=== PATIENT | female | born 1965 | race Caucasian/White ===

== ENCOUNTER 2016-11-06 10:50 | Inpatient (IN) | payer BC ==
[~2016-11-06] VITALS: Ht 165.1 cm; Wt 57.6 kg
[~2016-11-06 10:50] MED LIST: ALPR0.25 PO; AMLO2.5T PO; BUPR100T6 PO; BUTA1CAP58 PO; CARB200T PO; DIAZ10TA PO; FESO8TAB PO; FLUO10CA7 PO; FLUO20CA19 PO; IBUP800T PO; LISI-467 PO; LURA80TA PO; METH20TA PO; OMEP40CA3 PO; OXCA300O PO; TIZA2TAB PO
[2016-11-06] MEDS ORDERED: SODIUM CHLORIDE FLUSH 10ML SYR IVF ONE (11:30)
[2016-11-06 12:16] LABS: BLOOD UREA NITROGEN 7 mg/dL (7-18)
[2016-11-06] MEDS ORDERED: SODIUM CHLORIDE 0.9% 1,000 ML IV ONE (12:32)
[2016-11-06 14:25] VITALS: BP 146/94
[2016-11-06] MEDS ORDERED: ONDANSETRON ODT 4 MG PO PRN (15:00)
[2016-11-06] MEDS ORDERED: ENALAPRILAT 1.25 MG/ML, 2ML IV PRN (15:00)
[2016-11-06] MEDS ORDERED: DOCUSATE 100 MG CAPSULE PO PRN (15:00)
[2016-11-06] MEDS ORDERED: ACETAMINOPHEN 325 MG TABLET PO PRN (15:00)
[2016-11-06] MEDS ORDERED: GUAIFENESIN/DM 200-20MG, 10ML UDC PO PRN (15:00)
[2016-11-06] MEDS ORDERED: SODIUM CHLORIDE 3% 500 ML IV SCH (16:00)
[2016-11-06] MEDS: ENOXAPARIN 40 MG/0.4 ML SQ SCH (17:23)
[2016-11-06 19:46] VITALS: BP 118/81
[2016-11-06] MEDS: CARBAMAZEPINE 200 MG TABLET PO SCH (20:47)
[2016-11-06] MEDS: LURASIDONE 20 MG TABLET PO SCH (20:48)
[2016-11-06] MEDS: OMEPRAZOLE 20 MG CAPSULE.DR PO SCH (20:48)
[2016-11-07] MEDS: HYDROcodone/APAP 5/325 TABLET PO PRN ×4 (02:23→21:31)
[2016-11-07 02:35] VITALS: BP 139/90
[2016-11-07 06:17] LABS: BLOOD UREA NITROGEN 6 mg/dL (7-18)
[2016-11-07 07:00] VITALS: BP 124/81
[2016-11-07] MEDS: CARBAMAZEPINE 200 MG TABLET PO SCH ×2 (08:32→20:36)
[2016-11-07] MEDS: BUPROPION 100 MG TABLET PO SCH (08:32)
[2016-11-07] MEDS: FLUOXETINE 10 MG CAP PO SCH (08:32)
[2016-11-07] MEDS: AMLODIPINE 5 MG TABLET PO SCH (08:32)
[2016-11-07] MEDS: SODIUM CHLORIDE 1 GM TABLET PO SCH ×2 (08:32→20:36)
[2016-11-07] MEDS: METHYLPHENIDATE 10 MG TABLET PO SCH (12:11)
[2016-11-07 13:24] VITALS: BP 129/77
[2016-11-07] MEDS: ENOXAPARIN 40 MG/0.4 ML SQ SCH (15:55)
[2016-11-07 19:43] VITALS: BP 109/69
[2016-11-07] MEDS: OMEPRAZOLE 20 MG CAPSULE.DR PO SCH (20:36)
[2016-11-07] MEDS: LURASIDONE 20 MG TABLET PO SCH (20:36)
[2016-11-08 02:37] VITALS: BP 116/78
[2016-11-08] MEDS: HYDROcodone/APAP 5/325 TABLET PO PRN ×4 (02:43→21:51)
[2016-11-08 05:03] LABS: BLOOD UREA NITROGEN 7 mg/dL (7-18)
[2016-11-08 06:42] VITALS: BP 132/81
[2016-11-08] MEDS: AMLODIPINE 5 MG TABLET PO SCH (08:30)
[2016-11-08] MEDS: BUPROPION 100 MG TABLET PO SCH (08:30)
[2016-11-08] MEDS: FLUOXETINE 10 MG CAP PO SCH (08:30)
[2016-11-08] MEDS: SODIUM CHLORIDE 1 GM TABLET PO SCH ×2 (08:30→20:21)
[2016-11-08] MEDS: CARBAMAZEPINE 200 MG TABLET PO SCH ×2 (08:30→20:21)
[2016-11-08] MEDS: METHYLPHENIDATE 10 MG TABLET PO SCH (15:22)
[2016-11-08] MEDS: ENOXAPARIN 40 MG/0.4 ML SQ SCH (15:28)
[2016-11-08 15:58] VITALS: BP 131/83
[2016-11-08 19:48] VITALS: BP 124/78
[2016-11-08] MEDS: LURASIDONE 20 MG TABLET PO SCH (20:21)
[2016-11-08] MEDS: OMEPRAZOLE 20 MG CAPSULE.DR PO SCH (20:22)
[2016-11-09 02:45] VITALS: BP 134/70
[2016-11-09] MEDS: HYDROcodone/APAP 5/325 TABLET PO PRN ×2 (03:23→08:54)
[2016-11-09 05:04] LABS: BLOOD UREA NITROGEN 7 mg/dL (7-18)
[2016-11-09 07:32] VITALS: BP 133/89
[2016-11-09] MEDS: FLUOXETINE 10 MG CAP PO SCH (08:49)
[2016-11-09] MEDS: AMLODIPINE 5 MG TABLET PO SCH (08:49)
[2016-11-09] MEDS: SODIUM CHLORIDE 1 GM TABLET PO SCH (08:49)
[2016-11-09] MEDS: CARBAMAZEPINE 200 MG TABLET PO SCH (08:49)
[2016-11-09] MEDS: BUPROPION 100 MG TABLET PO SCH (08:50)
[2016-11-09] MEDS ORDERED: SODI1TAB PO (09:54)
[2016-11-09] MEDS ORDERED: MIRT15TA PO (09:54)
[2016-11-09 10:52] LABS: POTASSIUM,URINE RANDOM 16 mmol/L
[2016-11-09] MEDS: METHYLPHENIDATE 10 MG TABLET PO SCH (12:36)
== END 2016-11-09 13:15 | disposition home or self-care (01) | DRG 641 ==
LOC: ED 12:34 → EDIP 12:35 → ED 12:49 → 3NW 14:09
PROVIDERS: ADMIT Family Medicine; ATTEND Family Medicine
DX: E87.1 Hypo-osmolality and hyponatremia (principal); F31.9 Bipolar disorder, unspecified; I10 Essential (primary) hypertension; K21.9 Gastro-esophageal reflux disease without esophagitis; Z85.3 Personal history of malignant neoplasm of breast; Z90.81 Acquired absence of spleen; D72.819 Decreased white blood cell count, unspecified; Z90.710 Acquired absence of both cervix and uterus; H53.2 Diplopia; T78.8XXA Other adverse effects, not elsewhere classified, initial encounter
CPT/HCPCS: 36415; 80048; 82040; 82436; 82570; 83735; 83930; 83935; 84133; 84295; 84300; 84439; 84443; 84588; 85025; 96360; J1650; J7030

== ENCOUNTER 2019-02-25 17:53 | Inpatient (IN) | payer MEDICARE ==
[~2019-02-25] VITALS: Ht 165.1 cm; Wt 67.9 kg
[2019-03-02 08:19] VITALS: BP 148/92
== END 2019-03-02 10:52 | disposition home or self-care (01) | DRG 871 ==
LOC: ED 20:56 → EDIP 21:31 → 3NE 22:18
PROVIDERS: ADMIT Emergency Medicine; ATTEND Emergency Medicine
DX: A41.9 Sepsis, unspecified organism (principal); N17.0 Acute kidney failure with tubular necrosis; E87.1 Hypo-osmolality and hyponatremia; A09 Infectious gastroenteritis and colitis, unspecified; K92.1 Melena; D64.9 Anemia, unspecified; E86.0 Dehydration; E87.6 Hypokalemia; F10.10 Alcohol abuse, uncomplicated; F20.9 Schizophrenia, unspecified; F31.9 Bipolar disorder, unspecified; G43.909 Migraine, unspecified, not intractable, without status migrainosus; R73.9 Hyperglycemia, unspecified; I10 Essential (primary) hypertension; Z82.49 Family history of ischemic heart disease and other diseases of the circulatory system; Z85.3 Personal history of malignant neoplasm of breast; Z90.49 Acquired absence of other specified parts of digestive tract; Z90.710 Acquired absence of both cervix and uterus; Z90.81 Acquired absence of spleen
CPT/HCPCS: 36415; 74177; 80048; 80053; 81003; 83036; 83605; 83690; 83735; 84100; 85025; 85610; 85730; 86850; 86900; 87040; 87046; 87324; 89055; 96374; G0378; J0696; J0744; J2405; J3480; Q9967; J0360; J2270; J3475; J7030

== ENCOUNTER 2019-08-25 01:11 | Observation (INO) | payer MEDICARE ==
[~2019-08-25] VITALS: Ht 165.1 cm; Wt 73.7 kg
[~2019-08-25 01:11] MED LIST changes: -AMLO2.5T PO; +AMLO2.5T5 PO; +BUPR300T94 PO; +CARI1.5C2 PO; +CEPH500T PO; +CIPR500T3 PO; +CIPR500T87 PO; +EREN70AU INJ; +FLUO10CA14 PO; -FLUO10CA7 PO; +FLUO20TA25 PO; +IBUP-1223 PO; -IBUP800T PO; +LISI2.5T PO; +LITH150C PO; +METH20TA8 PO; +METR-90 PO; +METR500T PO; +MIRT15TA PO; +QUET400T PO; +QUET400T4 PO; +SODI1TAB PO; -TIZA2TAB PO; +TIZA2TAB2 PO; +TIZA4CAP PO
[2019-08-25] MEDS ORDERED: SODIUM CHLORIDE 0.9% 1,000ML IVBOLUS ONE (01:30)
[2019-08-25] MEDS ORDERED: ONDANSETRON 2MG/ML, 2ML IVPush ONE (01:30)
[2019-08-25] MEDS ORDERED: FENTANYL PF 100 MCG/2ML ONE ×2 (01:42→02:40)
[2019-08-25] MEDS ORDERED: ONDANSETRON 2MG/ML, 2ML ONE (01:42)
[2019-08-25] MEDS: FENTANYL PF 100 MCG/2ML IVPush PRN ×2 (01:46→02:44)
--- NOTE | 2019-08-25 01:57 | NUR ---
Patient BIB [facility] c/o low quad abd pain with N/V/D. Symptoms started tonight. Hx of colitis. Patient is in obvious pain. Respirations even and unlabored.
[2019-08-25 02:31] LABS: BASOPHILS # (AUTO) 0.01 x10^3/uL (0-0.1); BASOPHILS % (AUTO) 0 % (0-1); EOSINOPHILS # (AUTO) 0.11 x10^3/uL (0-0.4); EOSINOPHILS % (AUTO) 1 % (1-7); LYMPHOCYTES # (AUTO) 1.46 x10^3/uL (1-3.4); LYMPHOCYTES % (AUTO) 9 % (22-44); MD NO; MEAN CORPUSCULAR HEMOGLOBIN 32.2 pg (27.0-34.8); MEAN CORPUSCULAR HGB CONC 33.1 g/dL (32.4-35.8); MEAN CORPUSCULAR VOLUME 97.2 fL (80-100); MEAN PLATELET VOLUME 7.8 fL (7.4-10.4); MONOCYTES # (AUTO) 1.43 x10^3/uL (0.2-0.8); MONOCYTES % (AUTO) 9 % (2-9); NEUTROPHILS # (AUTO) 13.66 x10^3/uL (1.8-6.8); NEUTROPHILS % (AUTO) 82 % (42-75); PLATELET COUNT 436 x10^3/uL (130-400); RED BLOOD COUNT 3.93 x10^6/uL (3.82-5.3); RED CELL DISTRIBUTION WIDTH 14.3 % (9.6-15.2)
[2019-08-25 02:44] LABS: ALANINE AMINOTRANSFERASE 24 U/L (12-78); ALBUMIN 3.3 g/dL (3.4-5.0); ANION GAP 11 mmol/L (5-15); CALCIUM 7.6 mg/dL (8.5-10.1); CHLORIDE 100 mmol/L (98-107); CREATININE 0.94 mg/dL (0.55-1.02)
[2019-08-25 02:46] LABS: ALKALINE PHOSPHATASE 161 U/L (45-117); BILIRUBIN,TOTAL 0.2 mg/dL (0.2-1.0); TOTAL PROTEIN 5.8 g/dL (6.4-8.2)
[2019-08-25] MEDS ORDERED: OMNIPAQUE 350 MG/ML, 100ML BOTTLE ONE (03:21)
[2019-08-25] MEDS ORDERED: METRONIDAZOLE PMX 500MG/100ML 100 ML ONE (04:15)
[2019-08-25] MEDS ORDERED: CEFTRIAXONE PMX 1GM/50ML 50 ML ONE (04:16)
[2019-08-25] MEDS ORDERED: HYDROmorphone 1 MG/ML, 1ML INJ ONE (04:23)
[2019-08-25] MEDS ORDERED: HYDROmorphone 1 MG/ML, 1ML INJ IV ONE (04:30)
[2019-08-25] MEDS ORDERED: METRONIDAZOLE PMX 500MG/100ML 100 ML IV ONE (04:30)
[2019-08-25] MEDS ORDERED: CEFTRIAXONE PMX 1GM/50ML 50 ML IV ONE (04:30)
[2019-08-25] MEDS: PLEASE ENTER HEIGHT AND WEIGHT MC SCH ×2 (04:30→04:33)
[2019-08-25] MEDS: NS + 20MEQ KCL 1,000 ML IV SCH ×2 (05:50→15:30)
[2019-08-25] MEDS ORDERED: PROMETHAZINE 25 MG/ML, 1ML IM PRN (06:00)
[2019-08-25] MEDS ORDERED: HYDROmorphone 2 MG/ML, 1ML IVPush PRN (06:00)
[2019-08-25] MEDS ORDERED: POTASSIUM CHLORIDE 20 MEQ TAB.ER.PRT PO ONE (06:00)
[2019-08-25] MEDS ORDERED: ONDANSETRON 2MG/ML, 2ML IVPush PRN (06:00)
[2019-08-25] MEDS ORDERED: ACETAMINOPHEN 325 MG TABLET PO PRN ×2 (06:00→09:00)
[2019-08-25] MEDS ORDERED: CEFTRIAXONE PMX 1GM/50ML 50 ML IV SCH (06:00)
[2019-08-25] MEDS: CALCIUM GLUCONATE 4.6 MEQ in SODIUM CHLORIDE 0.9% 50 ML IV ONE ×2 (06:45→07:39)
[2019-08-25 06:55] LABS: FREE T4 (FREE THYROXINE) 0.55 ng/dL (0.76-1.46)
[2019-08-25 08:32] VITALS: BP 119/77
[2019-08-25] MEDS ORDERED: IBUPROFEN 600 MG TABLET PO PRN (09:00)
[2019-08-25 09:09] LABS: CLOSTRIDIUM DIFFICILE ANTIGEN NEGATIVE; CLOSTRIDIUM DIFFICILE TOXIN NEGATIVE (Negative)
[2019-08-25] MEDS: METRONIDAZOLE PMX 500MG/100ML 100 ML IV SCH ×3 (10:54→22:54)
[2019-08-25 11:39] LABS: MICROSCOPIC NOT IND
[2019-08-25 11:55] LABS: CULTURE INDICATED? NO
[2019-08-25 12:11] LABS: ANION GAP 8 mmol/L (5-15); CALCIUM 8.3 mg/dL (8.5-10.1); CHLORIDE 102 mmol/L (98-107)
[2019-08-25 12:12] LABS: CREATININE 0.83 mg/dL (0.55-1.02)
[2019-08-25 13:39] VITALS: BP 132/86
[2019-08-25] MEDS: CEFTRIAXONE PMX 1GM/50ML 50 ML IV SCH (16:18)
[2019-08-25 21:01] VITALS: BP 155/87
[2019-08-25] MEDS: LISINOPRIL 20 MG TABLET PO SCH (21:45)
[2019-08-25] MEDS: BUPROPION 100 MG TABLET PO SCH (21:45)
[2019-08-25] MEDS: CARBAMAZEPINE 200 MG TABLET PO SCH (21:45)
[2019-08-25] MEDS: FLUOXETINE HCL 20 MG CAPSULE PO SCH (21:46)
[2019-08-25] MEDS: QUETIAPINE 100MG TABLET PO SCH (21:46)
[2019-08-25] MEDS: METHYLPHENIDATE 10 MG TABLET PO SCH (21:46)
[2019-08-26 00:37] VITALS: BP 116/78
[2019-08-26] MEDS: NS + 20MEQ KCL 1,000 ML IV SCH (00:39)
[2019-08-26] MEDS: CEFTRIAXONE PMX 1GM/50ML 50 ML IV SCH (04:08)
[2019-08-26] MEDS: METRONIDAZOLE PMX 500MG/100ML 100 ML IV SCH (05:06)
[2019-08-26 05:58] LABS: CHLORIDE 103 mmol/L (98-107)
[2019-08-26 05:59] LABS: BASOPHILS # (AUTO) 0.07 x10^3/uL (0-0.1); BASOPHILS % (AUTO) 1 % (0-1); EOSINOPHILS # (AUTO) 0.35 x10^3/uL (0-0.4); EOSINOPHILS % (AUTO) 6 % (1-7); LYMPHOCYTES # (AUTO) 1.41 x10^3/uL (1-3.4); LYMPHOCYTES % (AUTO) 23 % (22-44); MD NO; MEAN CORPUSCULAR HEMOGLOBIN 32.4 pg (27.0-34.8); MEAN CORPUSCULAR HGB CONC 33.3 g/dL (32.4-35.8); MEAN CORPUSCULAR VOLUME 97.5 fL (80-100); MEAN PLATELET VOLUME 8.3 fL (7.4-10.4); MONOCYTES # (AUTO) 0.99 x10^3/uL (0.2-0.8); MONOCYTES % (AUTO) 16 % (2-9); NEUTROPHILS # (AUTO) 3.25 x10^3/uL (1.8-6.8); NEUTROPHILS % (AUTO) 54 % (42-75); PLATELET COUNT 438 x10^3/uL (130-400); RED BLOOD COUNT 3.39 x10^6/uL (3.82-5.3); RED CELL DISTRIBUTION WIDTH 14.6 % (9.6-15.2)
[2019-08-26] MEDS ORDERED: LEVOTHYROXINE 100 MCG TABLET PO SCH (06:00)
[2019-08-26 06:02] LABS: ANION GAP 8 mmol/L (5-15); CALCIUM 8.1 mg/dL (8.5-10.1); CREATININE 0.54 mg/dL (0.55-1.02)
[2019-08-26] MEDS ORDERED: OXYcodone 5 MG/5 ML ORAL.SOL UDC PO PRN (07:30)
[2019-08-26] MEDS ORDERED: ACETAMINOPHEN 325 MG TABLET PO PRN (07:30)
[2019-08-26] MEDS ORDERED: metroNIDAZOLE 500 MG TABLET PO SCH (07:30)
[2019-08-26] MEDS ORDERED: ENOXAPARIN 40 MG/0.4 ML SQ SCH (07:30)
[2019-08-26] MEDS ORDERED: SODIUM CHLORIDE 0.9% 1,000 ML IV SCH (07:30)
[2019-08-26 07:44] VITALS: BP 152/101
[2019-08-26] MEDS ORDERED: DIPHENHYDRAMINE 25 MG CAPSULE PO PRN (08:00)
[2019-08-26] MEDS: FLUOXETINE HCL 20 MG CAPSULE PO SCH (08:19)
[2019-08-26] MEDS: BUPROPION 100 MG TABLET PO SCH (08:19)
[2019-08-26] MEDS: LISINOPRIL 20 MG TABLET PO SCH (08:20)
[2019-08-26] MEDS: CARBAMAZEPINE 200 MG TABLET PO SCH (08:20)
[2019-08-26] MEDS: METHYLPHENIDATE 10 MG TABLET PO SCH (08:21)
[2019-08-26] MEDS: QUETIAPINE 100MG TABLET PO SCH (08:24)
[2019-08-26] MEDS ORDERED: HYDROmorphone 2 MG/ML, 1ML IVPush PRN (09:00)
[2019-08-26] MEDS ORDERED: LACTOBACILLUS CHEW TABLET PO SCH (09:00)
[2019-08-26] MEDS ORDERED: LURASIDONE 20 MG TABLET PO SCH (09:00)
[2019-08-26] MEDS ORDERED: CIPROFLOXACIN 500 MG TABLET PO SCH (09:00)
[2019-08-26] MEDS ORDERED: CIPR500T87 PO (11:13)
[2019-08-26] MEDS ORDERED: METR500T PO (11:13)
[2019-08-26] MEDS ORDERED: ACID1TAB7 PO (11:13)
[2019-08-26] MEDS ORDERED: LEVO100T PO (11:17)
== END 2019-08-26 12:25 | disposition home or self-care (01) ==
LOC: ED 05:10 → INTOOBSV 05:11 → 3N 05:11 → DCLOUNGE 08-26 12:18
PROVIDERS: ADMIT Family Medicine; ATTEND Internal Medicine
DX: A41.9 Sepsis, unspecified organism (principal); K52.9 Noninfective gastroenteritis and colitis, unspecified; E87.1 Hypo-osmolality and hyponatremia; E87.6 Hypokalemia; E87.2 Acidosis; E83.51 Hypocalcemia; D72.829 Elevated white blood cell count, unspecified; I10 Essential (primary) hypertension; G43.909 Migraine, unspecified, not intractable, without status migrainosus; F31.9 Bipolar disorder, unspecified; F20.9 Schizophrenia, unspecified; E86.0 Dehydration; I95.9 Hypotension, unspecified; G47.00 Insomnia, unspecified; E03.9 Hypothyroidism, unspecified; Z85.3 Personal history of malignant neoplasm of breast; Z90.710 Acquired absence of both cervix and uterus; Z79.899 Other long term (current) drug therapy; Z90.49 Acquired absence of other specified parts of digestive tract
CPT/HCPCS: 36415; 71045; 74177; 80048; 80053; 81003; 82533; 83605; 83690; 83735; 84439; 84443; 85025; 87040; 87046; 87324; 87427; 93005; 96361; 96365; 96366; 96367; 96368; 96372; 96375; 96376; 99291; G0378; J0610; J0696; J1170; J1650; J2405; J3010; J3480; J7030; Q0163; Q9967; 96374

== ENCOUNTER 2019-10-09 10:33 | Observation (INO) | payer MEDICARE ==
[~2019-10-09] VITALS: Ht 165.1 cm; Wt 72.8 kg
[~2019-10-09 10:33] MED LIST changes: +ACID1TAB7 PO; +LEVO100T PO; -TIZA2TAB2 PO; +TIZA2TAB4 PO
--- NOTE | 2019-10-09 10:58 | NUR ---
PT BIB [facility], PT WITH C/O SEVERE WEAKNESS. FOUND ON THE FLOOR AT WORK, -LOC. PT REPORTS FEELING THOUGH SHE HAD TO LIE DOWN. PT WITH 10 BM TODAY, RECENT DX OF COLITIS. PT ASSISTED WITH BEDPAN X3 DURING TRIAGE. PT WITH SOFT ALTHOUGH FORMED BM.
[2019-10-09] MEDS ORDERED: KETOROLAC 30 MG/1 ML ONE (11:14)
[2019-10-09] MEDS ORDERED: KETOROLAC 30 MG/1 ML IVPush ONE (11:30)
[2019-10-09] MEDS ORDERED: SODIUM CHLORIDE FLUSH 10ML SYR IVF ONE (11:30)
[2019-10-09] MEDS ORDERED: SODIUM CHLORIDE 0.9% 1,000ML IVBOLUS ONE ×2 (11:30→12:00)
--- NOTE | 2019-10-09 11:47 | NUR ---
PT NOW HYPOTENSIVE. PT WITH SBP 60S. ERMD MADE AWARE. BOLUS HUNG. ATTEMPT AT [facility] UNSUCCESSFULL WILL ATTEMPT US GUIDED FOR ADDITIONAL ACCESS
[2019-10-09 12:11] LABS: BASOPHILS % (AUTO) 0 % (0-1); EOSINOPHILS # (AUTO) 0.12 x10^3/uL (0-0.4); EOSINOPHILS % (AUTO) 2 % (1-7); LYMPHOCYTES # (AUTO) 0.76 x10^3/uL (1-3.4); LYMPHOCYTES % (AUTO) 12 % (22-44); MD NO; MEAN CORPUSCULAR HEMOGLOBIN 32.1 pg (27.0-34.8); MEAN CORPUSCULAR HGB CONC 32.7 g/dL (32.4-35.8); MEAN CORPUSCULAR VOLUME 98.2 fL (80-100); MONOCYTES # (AUTO) 0.08 x10^3/uL (0.2-0.8); MONOCYTES % (AUTO) 1 % (2-9); NEUTROPHILS # (AUTO) 5.64 x10^3/uL (1.8-6.8); NEUTROPHILS % (AUTO) 85 % (42-75); PLATELET COUNT 224 x10^3/uL (130-400); RED BLOOD COUNT 2.49 x10^6/uL (3.82-5.3); RED CELL DISTRIBUTION WIDTH 13.9 % (9.6-15.2)
[2019-10-09] MEDS ORDERED: LOPERAMIDE 2 MG CAPSULE ONE (12:28)
[2019-10-09] MEDS ORDERED: DIPHENOXYLATE/ATROPINE TABLET PO ONE (12:30)
--- NOTE | 2019-10-09 12:33 | NUR ---
BP IMPROVING DURING BOLUS, 91/37 AT THIS TIME. ERMD UPDATED. PT WITH LARGE LOOSE STOOL, CLEANED AND NEW LINENS AND CHUCKS APPLIED. ADDITIONAL ACCESS ACHEIVED VIA US.
[2019-10-09] MEDS ORDERED: CALCIUM GLUCONATE 4.6 MEQ/10 ML ONE (12:45)
[2019-10-09] MEDS ORDERED: CALCIUM GLUCONATE 0.46MEQ/1ML IVPush ONE (13:00)
[2019-10-09 13:19] LABS: CLOSTRIDIUM DIFFICILE ANTIGEN NEGATIVE; CLOSTRIDIUM DIFFICILE TOXIN NEGATIVE (Negative)
--- NOTE | 2019-10-09 13:42 | NUR ---
LAB CALLED, CHEM PANEL NEEDING REDRAW FOR THIRD TIME, RABIA UPDATED
[2019-10-09] MEDS ORDERED: PLEASE ENTER ALLERGIES MC SCH (14:00)
[2019-10-09] MEDS ORDERED: SODIUM CHLORIDE 0.9% 1,000 ML IV ONE (14:00)
[2019-10-09 14:03] LABS: ALANINE AMINOTRANSFERASE 26 U/L (12-78); ALBUMIN 3.5 g/dL (3.4-5.0); ANION GAP 11 mmol/L (5-15); CALCIUM 8.1 mg/dL (8.5-10.1); CHLORIDE 107 mmol/L (98-107); CREATININE 1.19 mg/dL (0.55-1.02)
[2019-10-09 14:06] LABS: ALKALINE PHOSPHATASE 239 U/L (45-117); BILIRUBIN,TOTAL 0.3 mg/dL (0.2-1.0); TOTAL PROTEIN 6.1 g/dL (6.4-8.2)
--- NOTE | 2019-10-09 15:05 | NUR ---
TASK RN: PATIENT AMBULATED UP TO RESTROOM FOR UA. NO DIZZINESS. HR REMAINED 80-90 UA SENT FOR ANALYSIS
[2019-10-09 15:15] LABS: MICROSCOPIC AUTO
--- NOTE | 2019-10-09 16:35 | NUR ---
PT RESTING ON GURNEY AT THIS TIME, NAD NOTED, BP REMAINS STABLE, AWAITING ADMITTING MD
[2019-10-09] MEDS ORDERED: KETOROLAC 30 MG/1 ML IV PRN (17:30)
[2019-10-09] MEDS ORDERED: ONDANSETRON 2MG/ML, 2ML IVPush PRN (17:30)
[2019-10-09] MEDS ORDERED: ONDANSETRON ODT 4 MG PO PRN (17:30)
[2019-10-09 17:36] VITALS: BP 99/58
[2019-10-09] MEDS: NS + 20MEQ KCL 1,000 ML IV SCH (18:23)
[2019-10-09 19:09] VITALS: BP 104/63
[2019-10-09 20:33] VITALS: BP 99/59
[2019-10-09] MEDS: LACTOBACILLUS CHEW TABLET PO SCH (20:37)
[2019-10-09] MEDS ORDERED: OMEPRAZOLE 20 MG CAPSULE.DR PO SCH (21:00)
[2019-10-09] MEDS: QUETIAPINE 200 MG TABLET PO SCH (21:00)
[2019-10-09] MEDS: CARBAMAZEPINE 200 MG TABLET PO SCH (21:45)
[2019-10-10] MEDS: NS + 20MEQ KCL 1,000 ML IV SCH ×2 (00:15→06:23)
[2019-10-10 01:13] VITALS: BP 98/64
[2019-10-10] MEDS ORDERED: LEVOTHYROXINE 50 MCG TABLET PO SCH (06:00)
[2019-10-10 07:02] LABS: ANION GAP 6 mmol/L (5-15); CALCIUM 7.8 mg/dL (8.5-10.1); CHLORIDE 113 mmol/L (98-107)
[2019-10-10 07:04] LABS: ALANINE AMINOTRANSFERASE 26 U/L (12-78); CREATININE 0.82 mg/dL (0.55-1.02)
[2019-10-10 07:15] LABS: ALKALINE PHOSPHATASE 176 U/L (45-117); BILIRUBIN,TOTAL 0.4 mg/dL (0.2-1.0); TOTAL PROTEIN 5.5 g/dL (6.4-8.2)
[2019-10-10 07:37] LABS: BASOPHILS # (AUTO) 0.09 x10^3/uL (0-0.1); BASOPHILS % (AUTO) 1 % (0-1); EOSINOPHILS # (AUTO) 0.41 x10^3/uL (0-0.4); EOSINOPHILS % (AUTO) 4 % (1-7); LYMPHOCYTES # (AUTO) 1.26 x10^3/uL (1-3.4); LYMPHOCYTES % (AUTO) 13 % (22-44); MD SCAN; MEAN CORPUSCULAR HEMOGLOBIN 32.2 pg (27.0-34.8); MEAN CORPUSCULAR HGB CONC 32.9 g/dL (32.4-35.8); MONOCYTES # (AUTO) 0.97 x10^3/uL (0.2-0.8); MONOCYTES % (AUTO) 10 % (2-9); NEUTROPHILS % (AUTO) 72 % (42-75); PLATELET COUNT 297 x10^3/uL (130-400); RED BLOOD COUNT 3.43 x10^6/uL (3.82-5.3); RED CELL DISTRIBUTION WIDTH 13.8 % (9.6-15.2)
[2019-10-10 08:03] VITALS: BP 138/87
[2019-10-10] MEDS: QUETIAPINE 200 MG TABLET PO SCH (08:42)
[2019-10-10] MEDS: CARBAMAZEPINE 200 MG TABLET PO SCH (08:42)
[2019-10-10] MEDS: LACTOBACILLUS CHEW TABLET PO SCH (08:42)
[2019-10-10] MEDS ORDERED: FLUOXETINE HCL 20 MG CAPSULE PO SCH (09:00)
[2019-10-10] MEDS ORDERED: BUPROPION SR 150 MG TABLET PO SCH (09:00)
[2019-10-10 13:48] VITALS: BP 126/82
== END 2019-10-10 14:49 | disposition home or self-care (01) ==
LOC: ED 11:07 → EDIP 15:24 → INTOOBSV 15:24 → 3N 17:29
PROVIDERS: ADMIT Internal Medicine; ATTEND Internal Medicine
DX: R65.10 Systemic inflammatory response syndrome (SIRS) of non-infectious origin without acute organ dysfunction (principal); R19.7 Diarrhea, unspecified; E87.1 Hypo-osmolality and hyponatremia; E86.0 Dehydration; D64.9 Anemia, unspecified; K21.9 Gastro-esophageal reflux disease without esophagitis; E03.9 Hypothyroidism, unspecified; F20.9 Schizophrenia, unspecified; F31.9 Bipolar disorder, unspecified; I95.9 Hypotension, unspecified; G43.909 Migraine, unspecified, not intractable, without status migrainosus; I10 Essential (primary) hypertension; Z85.3 Personal history of malignant neoplasm of breast; Z90.710 Acquired absence of both cervix and uterus
CPT/HCPCS: 36415; 74018; 80053; 81001; 83605; 83690; 83735; 84100; 84443; 85025; 87086; 87324; 89055; 93005; 96361; 96374; 96375; 96376; 99285; G0378; J0610; J1885; J3480; J7030; 96365

== ENCOUNTER 2020-07-27 13:35 | Outpatient (CLI) | payer MEDICARE ==
[~2020-07-27 13:35] MED LIST changes: -FLUO10CA14 PO; +FLUO10CA15 PO; +MIRT-37 PO; -MIRT15TA PO; +TIZA-106 PO; -TIZA2TAB4 PO
== END 2020-07-27 23:59 | disposition home or self-care (01) ==
LOC: WOUND 13:35
PROVIDERS: ATTEND Nurse Practitioner Family
DX: Z93.2 Ileostomy status (principal); I10 Essential (primary) hypertension; F32.9 Major depressive disorder, single episode, unspecified; F41.9 Anxiety disorder, unspecified; Z85.3 Personal history of malignant neoplasm of breast
CPT/HCPCS: G0463

== ENCOUNTER 2020-09-23 10:15 | Outpatient (CLI) | payer MEDICARE ==
[~2020-09-23 10:15] MED LIST changes: -CIPR500T3 PO; +CIPR500T4 PO
[2020-09-23] MEDS ORDERED: OMNIPAQUE 350 MG/ML, 100ML BOTTLE ONE (11:15)
== END 2020-09-23 23:59 | disposition home or self-care (01) ==
LOC: CFH 10:15
PROVIDERS: ATTEND Surgery
DX: J84.10 Pulmonary fibrosis, unspecified (principal); K55.8 Other vascular disorders of intestine; Z90.81 Acquired absence of spleen; Z90.49 Acquired absence of other specified parts of digestive tract
CPT/HCPCS: 74174; 82565; Q9967

== ENCOUNTER 2020-11-26 12:51 | Outpatient (CLI) | payer MEDICARE ==
[~2020-11-26 12:51] MED LIST changes: +BUPR100T11 PO; +QUET100T PO
== END 2020-11-26 23:59 | disposition home or self-care (01) ==
LOC: WOUND 12:51
PROVIDERS: ATTEND Internal Medicine
DX: Z93.2 Ileostomy status (principal); Z93.3 Colostomy status; I10 Essential (primary) hypertension; F32.9 Major depressive disorder, single episode, unspecified; F41.9 Anxiety disorder, unspecified; E03.9 Hypothyroidism, unspecified; K21.9 Gastro-esophageal reflux disease without esophagitis; Z79.899 Other long term (current) drug therapy; Z85.3 Personal history of malignant neoplasm of breast
CPT/HCPCS: G0463

== ENCOUNTER → 2020-12-31 | Outpatient (CLI) | payer MEDICARE ==
[~2020-12-31] MED LIST changes: +AMLO-211 PO; +BUPR200T3 PO; +PREG75CA PO; +VALA500T8 PO
[2020-12-31 11:30] LABS: BASOPHILS % (AUTO) 1 % (0-1); EOSINOPHILS % (AUTO) 2 % (1-7); LYMPHOCYTES % (AUTO) 28 % (22-44); MEAN CORPUSCULAR HEMOGLOBIN 32.7 pg (27.0-34.8); MEAN CORPUSCULAR HGB CONC 34.2 g/dL (32.4-35.8); MEAN PLATELET VOLUME 7.8 fL (7.4-10.4); MONOCYTES % (AUTO) 11 % (2-9); NEUTROPHILS % (AUTO) 57 % (42-75); PLATELET COUNT 483 x10^3/uL (130-400); RED BLOOD COUNT 3.87 x10^6/uL (3.82-5.3); RED CELL DISTRIBUTION WIDTH 13.4 % (9.6-15.2)
[2020-12-31 11:43] LABS: ALBUMIN 4.2 g/dL (3.4-5.0); ANION GAP 11 mmol/L (5-15); CALCIUM 8.8 mg/dL (8.5-10.1); CHLORIDE 98 mmol/L (98-107)
[2020-12-31 11:47] LABS: ALANINE AMINOTRANSFERASE 66 U/L (12-78); ALKALINE PHOSPHATASE 114 U/L (45-117); BILIRUBIN,TOTAL 0.2 mg/dL (0.2-1.0); CREATININE 0.65 mg/dL (0.55-1.02); TOTAL PROTEIN 7.6 g/dL (6.4-8.2)
== END | disposition home or self-care (01) ==
LOC: STAR 10:22
PROVIDERS: ATTEND Surgery
DX: Z01.818 Encounter for other preprocedural examination (principal); K94.13 Enterostomy malfunction; Z20.822 Contact with and (suspected) exposure to COVID-19
CPT/HCPCS: 36415; 80053; 85025; 93005; U0003; U0005

== ENCOUNTER 2021-01-06 05:56 | Inpatient (IN) | payer MEDICARE ==
[~2021-01-06] VITALS: Ht 165.1 cm; Wt 80.0 kg
[~2021-01-06 05:56] MED LIST changes: -LISI2.5T PO; +LISI2.5T12 PO; -QUET100T PO; +QUET100T2 PO; -QUET400T PO; +QUET400T2 PO
[2021-01-06] MEDS ORDERED: CHLORHEXIDINE 15 ML UDC ONE (06:19)
[2021-01-06] MEDS ORDERED: MIDAZOLAM 1 MG/ML, 2ML ONE (06:55)
[2021-01-06] MEDS ORDERED: FENTANYL PF 250 MCG/5ML ONE (06:55)
[2021-01-06] MEDS ORDERED: CHLORHEXIDINE 15 ML UDC PO ONE (07:00)
[2021-01-06] MEDS ORDERED: LACTATED RINGERS 1,000 ML IV SCH (07:00)
[2021-01-06 07:16] LABS: ANION GAP 12 mmol/L (5-15); CALCIUM 8.5 mg/dL (8.5-10.1); CHLORIDE 99 mmol/L (98-107); CREATININE 1.04 mg/dL (0.55-1.02)
[2021-01-06] MEDS ORDERED: HALOPERIDOL 5 MG/ML IV PRN (07:30)
[2021-01-06] MEDS ORDERED: hydrALAzine 20 MG/ML, 1ML IV PRN (07:30)
[2021-01-06] MEDS ORDERED: MEPERIDINE/PF 25MG/0.5ML IVPush PRN (07:30)
[2021-01-06] MEDS ORDERED: PROMETHAZINE 25 MG/ML, 1ML IVPush PRN (07:30)
[2021-01-06] MEDS ORDERED: FENTANYL PF 100 MCG/2ML IV PRN (07:30)
[2021-01-06] MEDS ORDERED: LABETALOL 5MG/ML, 20ML IV PRN (07:30)
[2021-01-06] MEDS ORDERED: DEXAMETHASONE 4 MG/ML, 1ML ONE (07:33)
[2021-01-06] MEDS ORDERED: CEFOTETAN 2 GM ONE (07:33)
[2021-01-06] MEDS ORDERED: PHENYLEPHRINE 10 MG/ML ONE (07:33)
[2021-01-06] MEDS ORDERED: ROCURONIUM 10MG/ML,5ML ONE (10:48)
[2021-01-06] MEDS ORDERED: GLYCOPYRROLATE 0.2MG/1ML, 5ML ONE (10:48)
[2021-01-06] MEDS ORDERED: ONDANSETRON 2MG/ML, 2ML ONE (10:48)
[2021-01-06] MEDS ORDERED: PROPOFOL 10 MG/ML, 20ML ONE (10:48)
[2021-01-06] MEDS ORDERED: NEOSTIGMINE 1 MG/ML, 10ML ONE (10:48)
[2021-01-06] MEDS ORDERED: FENTANYL PF 100 MCG/2ML ONE (12:32)
[2021-01-06] MEDS ORDERED: HYDROmorphone 1 MG/ML, 1ML INJ ONE (12:45)
[2021-01-06] MEDS: HYDROmorphone 1 MG/ML, 1ML INJ IVPush PRN (13:00)
[2021-01-06] MEDS ORDERED: DIPHENHYDRAMINE 50 MG/ML, 1ML IVPush PRN (14:00)
[2021-01-06] MEDS ORDERED: ONDANSETRON 2MG/ML, 2ML IV PRN (14:00)
[2021-01-06] MEDS ORDERED: DIPHENHYDRAMINE 25 MG CAPSULE PO PRN (14:00)
[2021-01-06] MEDS: D5%-0.45NACL+KCL 20MEQ 1,000 ML IV SCH (17:44)
[2021-01-06] MEDS: OXYcodone IR 5MG TABLET PO PRN ×2 (17:45→20:52)
[2021-01-06] MEDS: PREGABALIN 75 MG CAPSULE PO SCH ×2 (17:45→20:52)
[2021-01-06] MEDS: ACETAMINOPHEN 500 MG TABLET PO SCH ×2 (17:45→20:51)
[2021-01-06 19:12] VITALS: BP 113/85
[2021-01-06] MEDS: BUPROPION SR 100 MG TABLET PO SCH (20:52)
[2021-01-06] MEDS: OMEPRAZOLE 20 MG CAPSULE.DR PO SCH (20:52)
[2021-01-06] MEDS: CARBAMAZEPINE 200 MG TABLET PO SCH (20:57)
[2021-01-07 00:13] VITALS: BP 110/62
[2021-01-07] MEDS ORDERED: QUETIAPINE 200 MG TABLET ONE (01:07)
[2021-01-07] MEDS: QUETIAPINE 200 MG TABLET PO SCH ×2 (01:09→21:33)
[2021-01-07] MEDS: OXYcodone IR 5MG TABLET PO PRN ×7 (03:19→21:34)
[2021-01-07] MEDS: ACETAMINOPHEN 500 MG TABLET PO SCH ×4 (03:19→21:33)
[2021-01-07 03:34] LABS: ALBUMIN 3.5 g/dL (3.4-5.0); ANION GAP 9 mmol/L (5-15); CALCIUM 7.8 mg/dL (8.5-10.1); CHLORIDE 103 mmol/L (98-107); CREATININE 0.73 mg/dL (0.55-1.02)
[2021-01-07 03:35] LABS: BASOPHILS % (AUTO) 1 % (0-1); EOSINOPHILS % (AUTO) 0 % (1-7); LYMPHOCYTES % (AUTO) 10 % (22-44); MEAN CORPUSCULAR HEMOGLOBIN 33.1 pg (27.0-34.8); MEAN CORPUSCULAR HGB CONC 33.7 g/dL (32.4-35.8); MEAN PLATELET VOLUME 8.3 fL (7.4-10.4); MONOCYTES % (AUTO) 8 % (2-9); NEUTROPHILS % (AUTO) 82 % (42-75); PLATELET COUNT 367 x10^3/uL (130-400); RED BLOOD COUNT 4.15 x10^6/uL (3.82-5.3); RED CELL DISTRIBUTION WIDTH 13.6 % (9.6-15.2)
[2021-01-07 04:11] VITALS: BP 93/63
[2021-01-07] MEDS: D5%-0.45NACL+KCL 20MEQ 1,000 ML IV SCH (06:16)
[2021-01-07] MEDS: LEVOTHYROXINE 100 MCG TABLET PO SCH (06:16)
[2021-01-07 08:20] VITALS: BP 92/60
[2021-01-07] MEDS: FLUOXETINE HCL 20 MG CAPSULE PO SCH (08:40)
[2021-01-07] MEDS: AMLODIPINE 10 MG TAB PO SCH (08:41)
[2021-01-07] MEDS: PREGABALIN 75 MG CAPSULE PO SCH ×3 (08:41→21:34)
[2021-01-07] MEDS: BUPROPION SR 100 MG TABLET PO SCH ×2 (08:41→21:34)
[2021-01-07] MEDS: CARBAMAZEPINE 200 MG TABLET PO SCH ×2 (08:41→21:34)
[2021-01-07] MEDS: ENOXAPARIN 40 MG/0.4 ML SQ SCH (08:42)
[2021-01-07] MEDS ORDERED: QUETIAPINE 200 MG TABLET PO SCH (09:00)
[2021-01-07 12:33] VITALS: BP 94/63
[2021-01-07 19:42] VITALS: BP 91/61
[2021-01-07] MEDS: OMEPRAZOLE 20 MG CAPSULE.DR PO SCH (21:34)
[2021-01-08 01:30] VITALS: BP 94/62
[2021-01-08] MEDS: D5%-0.45NACL+KCL 20MEQ 1,000 ML IV SCH ×2 (01:42→16:03)
[2021-01-08] MEDS: ACETAMINOPHEN 500 MG TABLET PO SCH ×4 (03:05→20:40)
[2021-01-08 03:29] LABS: BASOPHILS % (AUTO) 0 % (0-1); EOSINOPHILS % (AUTO) 1 % (1-7); LYMPHOCYTES % (AUTO) 8 % (22-44); MEAN CORPUSCULAR HEMOGLOBIN 32.7 pg (27.0-34.8); MEAN CORPUSCULAR HGB CONC 33.1 g/dL (32.4-35.8); MEAN PLATELET VOLUME 8.1 fL (7.4-10.4); MONOCYTES % (AUTO) 7 % (2-9); NEUTROPHILS % (AUTO) 84 % (42-75); PLATELET COUNT 312 x10^3/uL (130-400); RED BLOOD COUNT 3.24 x10^6/uL (3.82-5.3); RED CELL DISTRIBUTION WIDTH 13.8 % (9.6-15.2)
[2021-01-08 03:35] LABS: ALBUMIN 2.7 g/dL (3.4-5.0); ANION GAP 7 mmol/L (5-15); CALCIUM 7.4 mg/dL (8.5-10.1); CHLORIDE 101 mmol/L (98-107); CREATININE 0.55 mg/dL (0.55-1.02)
[2021-01-08] MEDS: LEVOTHYROXINE 100 MCG TABLET PO SCH (06:07)
[2021-01-08] MEDS: OXYcodone IR 5MG TABLET PO PRN ×5 (06:09→23:59)
[2021-01-08 07:30] VITALS: BP 86/55
[2021-01-08] MEDS: AMLODIPINE 10 MG TAB PO SCH (08:55)
[2021-01-08] MEDS: PREGABALIN 75 MG CAPSULE PO SCH ×3 (08:56→20:41)
[2021-01-08] MEDS: FLUOXETINE HCL 20 MG CAPSULE PO SCH (08:56)
[2021-01-08] MEDS: CARBAMAZEPINE 200 MG TABLET PO SCH ×2 (08:56→20:40)
[2021-01-08] MEDS: BUPROPION SR 100 MG TABLET PO SCH ×2 (08:56→20:41)
[2021-01-08] MEDS: ENOXAPARIN 40 MG/0.4 ML SQ SCH (08:57)
[2021-01-08 13:40] VITALS: BP 85/56
[2021-01-08] MEDS ORDERED: POLYETHYLENE GLYCOL 17 GM PACKET PO PRN (16:00)
[2021-01-08 19:11] VITALS: BP 95/62
[2021-01-08] MEDS: OMEPRAZOLE 20 MG CAPSULE.DR PO SCH (20:40)
[2021-01-08] MEDS: QUETIAPINE 200 MG TABLET PO SCH (20:41)
[2021-01-09 02:28] VITALS: BP 90/60
[2021-01-09] MEDS: D5%-0.45NACL+KCL 20MEQ 1,000 ML IV SCH ×2 (02:30→13:28)
[2021-01-09 03:18] LABS: BASOPHILS % (AUTO) 0 % (0-1); EOSINOPHILS % (AUTO) 2 % (1-7); LYMPHOCYTES % (AUTO) 10 % (22-44); MEAN CORPUSCULAR HEMOGLOBIN 33.7 pg (27.0-34.8); MEAN CORPUSCULAR HGB CONC 34.2 g/dL (32.4-35.8); MONOCYTES % (AUTO) 10 % (2-9); NEUTROPHILS % (AUTO) 78 % (42-75); PLATELET COUNT 275 x10^3/uL (130-400); RED BLOOD COUNT 2.96 x10^6/uL (3.82-5.3); RED CELL DISTRIBUTION WIDTH 14.2 % (9.6-15.2)
[2021-01-09 03:31] LABS: ALBUMIN 2.4 g/dL (3.4-5.0); ANION GAP 6 mmol/L (5-15); CALCIUM 7.5 mg/dL (8.5-10.1); CHLORIDE 99 mmol/L (98-107); CREATININE 0.47 mg/dL (0.55-1.02)
[2021-01-09] MEDS: OXYcodone IR 5MG TABLET PO PRN ×4 (04:02→15:28)
[2021-01-09] MEDS: ACETAMINOPHEN 500 MG TABLET PO SCH ×3 (04:02→15:28)
[2021-01-09] MEDS: LEVOTHYROXINE 100 MCG TABLET PO SCH (04:59)
[2021-01-09 08:00] VITALS: BP 91/62
[2021-01-09] MEDS: CARBAMAZEPINE 200 MG TABLET PO SCH (08:15)
[2021-01-09] MEDS: BUPROPION SR 100 MG TABLET PO SCH (08:15)
[2021-01-09] MEDS: PREGABALIN 75 MG CAPSULE PO SCH ×2 (08:15→15:28)
[2021-01-09] MEDS: AMLODIPINE 10 MG TAB PO SCH (08:16)
[2021-01-09] MEDS: FLUOXETINE HCL 20 MG CAPSULE PO SCH (08:16)
[2021-01-09] MEDS: ENOXAPARIN 40 MG/0.4 ML SQ SCH (08:17)
[2021-01-09 13:12] VITALS: BP 93/62
[2021-01-09] MEDS ORDERED: OXYC1TAB12 PO (13:53)
[2021-01-18] MEDS ORDERED: OXYC5TAB2 PO (08:20)
[2021-01-18] MEDS ORDERED: AMOX1TAB64 PO (11:17)
== END 2021-01-09 15:45 | disposition home or self-care (01) | DRG 330 ==
LOC: ORIP 05:56 → 4NE 13:41 → DCLOUNGE 01-09 15:45
PROVIDERS: ADMIT Surgery; ATTEND Surgery
PROC: 0DJD8ZZ Inspection of Lower Intestinal Tract, Via Natural or Artificial Opening Endoscopic (ICD-10-PCS; 2021-01-06)
PROC: 0DN80ZZ Release Small Intestine, Open Approach (ICD-10-PCS; 2021-01-06)
PROC: 0DSB0ZZ Reposition Ileum, Open Approach (ICD-10-PCS; 2021-01-06)
PROC: 0TP98DZ Removal of Intraluminal Device from Ureter, Via Natural or Artificial Opening Endoscopic (ICD-10-PCS; 2021-01-06)
PROC: 0TP98DZ Removal of Intraluminal Device from Ureter, Via Natural or Artificial Opening Endoscopic (ICD-10-PCS; 2021-01-06)
PROC: 0DBN0ZZ Excision of Sigmoid Colon, Open Approach (ICD-10-PCS; principal; 2021-01-06 07:30)
PROC: 0T788DZ Dilation of Bilateral Ureters with Intraluminal Device, Via Natural or Artificial Opening Endoscopic (ICD-10-PCS; 2021-01-06 07:30)
DX: Z43.2 Encounter for attention to ileostomy (principal); R71.0 Precipitous drop in hematocrit
CPT/HCPCS: 36415; 80048; 82040; 85025; 86140; 86850; 86900; 88307; G0378; J1100; J1170; J1650; J2250; J2405; J2704; J2710; J3010; C1758; C1765; J2370; J3480; J7120